=== PATIENT | female | born 2000 | race African-American/Black ===

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

== ENCOUNTER 2019-04-23 08:07 | Emergency (ER) | payer BC, MEDICAID ==
[~2019-04-23] VITALS: Ht 170.2 cm; Wt 60.0 kg
[2019-04-23] MEDS ORDERED: LIDOCAINE HCL/PF 1% 10 MG/ML 5ML VIAL IJ STA (08:37)
[2019-04-23] MEDS ORDERED: AZITHROMYCIN 500 MG TABLET PO STA (08:37)
[2019-04-23] MEDS ORDERED: CEFTRIAXONE SODIUM 250 MG/VIAL IM STA (08:37)
[2019-04-23 09:37] LABS: CLARITY URINE CLEAR (CLEAR); COLOR URINE YELLOW (YELLOW); KETONES URINE NEGATIVE (NEGATIVE); LEUKOCYTE ESTERASE URINE 1+ (NEGATIVE); NITRITE URINE NEGATIVE (NEGATIVE); OCCULT BLOOD URINE NEGATIVE (NEGATIVE); PROTEIN URINE NEGATIVE (NEGATIVE); SPECIFIC GRAVITY URINE 1.014 (1.005-1.030); UROBILINOGEN URINE 0.2 E.U./dL (0.2-1.0)
[2019-04-23 10:38] VITALS: BP 117/69
[2019-04-25 04:10] LABS: NEISSERIA GONORRHOEAE NAA Negative (Negative)
== END 2019-04-23 10:40 | disposition home or self-care (01) ==
LOC: ER 08:07
DX: N89.8 Other specified noninflammatory disorders of vagina (principal); N30.90 Cystitis, unspecified without hematuria
CPT/HCPCS: 81003; 81025; 87491; 87591; 96372; 99283; J0696; J3490

== ENCOUNTER 2019-05-13 06:37 | Emergency (ER) | payer BC ==
[~2019-05-13] VITALS: Ht 170.2 cm; Wt 61.0 kg
[2019-05-13 06:50] VITALS: BP 120/60
[2019-05-13] MEDS ORDERED: LORATADINE 10MG TABLET PO SCH (07:30)
== END 2019-05-13 07:53 | disposition home or self-care (01) ==
LOC: ER 06:37
DX: H10.89 Other conjunctivitis (principal); J06.9 Acute upper respiratory infection, unspecified
CPT/HCPCS: 99283

== ENCOUNTER 2019-09-17 13:39 | Emergency (ER) | payer BC, MEDICAID ==
[~2019-09-17] VITALS: Ht 172.7 cm; Wt 58.0 kg
[2019-09-17 13:45] VITALS: BP 121/61
[2019-09-17 14:48] LABS: HEMATOCRIT. 38.3 % (36.0-48.0); MEAN CORPUSCULAR HEMOGLOBIN 28.2 pg (28.0-32.0); MEAN PLATELET VOLUME 8.7 fl (7.4-10.4); PLATELET 230 x1000/uL (130-400); RED BLOOD CELL COUNT 4.61 mill/uL (4.2-5.4); RED CELL DISTRIBUTION WIDTH 14.2 % (11.6-14.6)
[2019-09-17 14:53] LABS: CHLORIDE 105 mEq/L (98-107)
[2019-09-17 14:56] LABS: BASOPHILS % 0.7 % (0.0-2.0); LYMPHOCYTES % 40.9 % (20.0-50.0); MONOCYTES % 6.2 % (2.0-8.0); NEUTROPHILS % 50.2 % (40.0-76.0)
[2019-09-17 15:03] LABS: B-HCG QUANTITATIVE < 1 mIU/mL (<3)
[2019-09-17 15:10] LABS: HCG SCREEN NEGATIVE
== END 2019-09-17 15:31 | disposition home or self-care (01) ==
LOC: ER 13:39
DX: N93.8 Other specified abnormal uterine and vaginal bleeding (principal)
CPT/HCPCS: 36415; 76830; 76856; 80053; 81025; 84702; 84703; 85025; 86850; 86900; 99284